=== PATIENT | male | born 1950 | race Caucasian/White ===

== ENCOUNTER 2018-06-24 17:28 | Outpatient (CLI) | payer MEDICARE ==
--- NOTE | 2018-06-25 09:21 | XRAY Report ---
Reason: KYPHOSIS DEFORMITY OF T SPINE,SOMATIC DYSFUNCTION Procedure Date: 06/24/2018 Accession Number: [id number] / [id number] Procedure: XR - Pelvis 1 View CPT Code: FULL RESULT: EXAM: PELVIS RADIOGRAPHY EXAM DATE: 06/24/2018 05:51 PM. CLINICAL HISTORY: Kyphosis deformity of t spine, somatic dysfunction. COMPARISON: None. TECHNIQUE: 1 view. FINDINGS: Bones: There is the suggestion of a mild scoliosis of the partially visualized lumbar spine. No fracture or bone lesion. Joints: The visualized hip joints demonstrate mild to moderate joint space narrowing. The pubis symphysis, and sacroiliac joints are preserved. No subluxation. Soft Tissues: Normal. No soft tissue swelling. IMPRESSION: Mild degenerative joint disease of the hips. RADIA
--- NOTE | 2018-06-25 09:42 | XRAY Report ---
Reason: KYPHOSIS DEFORMITY OF T SPICE, SOMATIC DYSFUNCTION Procedure Date: 06/24/2018 Accession Number: [id number] / [id number] Procedure: XR - Lumbar Spine 2 View CPT Code: FULL RESULT: EXAM: LUMBOSACRAL SPINE RADIOGRAPHY EXAM DATE: 06/24/2018 05:51 PM. CLINICAL HISTORY: Kyphosis deformity of t spice, somatic dysfunction. COMPARISONS: None. TECHNIQUE: 2 views. FINDINGS: Alignment: Mild thoracolumbar S-shaped scoliosis without listhesis. Bones: Five cet-uwz-toyjmui lumbar vertebral bodies are present. No fractures or bone lesions. Disks: Moderate degenerative disk disease is most pronounced at L4-L5 and L5-S1. Facets: Mild to moderate facet arthropathy at L4 and L5. Sacroiliac Joints: Unremarkable. Soft Tissues: Normal. The visualized bowel gas pattern is normal. IMPRESSION: Degenerative changes as described. RADIA
--- NOTE | 2018-06-25 09:42 | XRAY Report ---
Reason: KYPHOSIS DEFORMITY, SOMATIC DYSFUNCTION Procedure Date: 06/24/2018 Accession Number: [id number] / [id number] Procedure: XR - Thoracic Spine 2 View CPT Code: FULL RESULT: EXAM: THORACIC SPINE RADIOGRAPHY EXAM DATE: 06/24/2018 06:16 PM. CLINICAL HISTORY: Kyphosis deformity, somatic dysfunction. COMPARISON: None. TECHNIQUE: 2 views. FINDINGS: Alignment: There is a mild degenerative thoracic kyphosis without visualization of single level vertebral body loss of height. There is a mild thoracolumbar S-shaped scoliosis. No listhesis. Bones: No fractures or bone lesions. Disks: Normal. Disk heights are generally maintained. Soft Tissues: Normal. The visualized lungs and cardiomediastinal silhouette are normal. IMPRESSION: Mild degenerative kyphosis without kailyn compression fracture. RADIA
== END 2018-06-24 17:29 | disposition home or self-care (01) ==
LOC: DI 17:28
PROVIDERS: ATTEND Family Medicine
DX: M40.204 Unspecified kyphosis, thoracic region (principal); M99.03 Segmental and somatic dysfunction of lumbar region; M51.37 Other intervertebral disc degeneration, lumbosacral region; M16.0 Bilateral primary osteoarthritis of hip
CPT/HCPCS: 72070; 72100; 72170

== ENCOUNTER 2018-07-27 13:27 | Outpatient (CLI) | payer MEDICARE ==
--- NOTE | 2018-07-27 18:24 | MRI Report ---
Reason: PAIN IN LEFT LOWER LEG Procedure Date: 07/27/2018 Accession Number: [id number] / [id number] Procedure: MRI - Lumbar Spine W/O CPT Code: FULL RESULT: EXAM: MRI LUMBAR SPINE WITHOUT CONTRAST EXAM DATE: 07/27/2018 02:29 PM. CLINICAL HISTORY: Pain in left lower leg. COMPARISON: Radiographs 06/24/2018. TECHNIQUE: Multiplanar, multisequence T1-weighted and fluid-sensitive sequences of the lumbar spine from T10 to S1 without contrast. Other: None. FINDINGS: Spinal Canal: The conus terminates at T12-L1. The conus medullaris and cauda equina are unremarkable. Alignment: Mild S-shaped lumbar curvature with convex left component in the upper lumbar spine and convex right component in the lower lumbar spine. No spondylolisthesis. Bone Marrow: Five ukl-eop-ygvvahf lumbar vertebral bodies are present. Mildly heterogeneous T1 isointense signal throughout the osseous structures without focal fluid sensitive hyperintense lesion, suggestive of reconversion. Mild diskogenic edema at L4-L5, asymmetric to the left. Disk Levels/Facets: Disk desiccation throughout. Mild to moderate disk height loss at L4-L5. T12-L1: Minimal disk bulge. No stenosis. L1-L2: Minimal disk bulge. No stenosis. L2-L3: Minimal disk bulge. No stenosis. L3-L4: Small bilobed disk bulge, asymmetric to the right with superimposed small central protrusion. Mild facet and ligamentum flavum hypertrophy. Mild central canal stenosis. 0.6 cm cystic foci present in the anterior aspect bilateral neural foramen. These may be due to prominent vessels versus benign nerve root sheath cysts. These minimally displace the exiting L3 nerve roots. No gross neural foramen stenosis. L4-L5: Small broad-based disk/osteophyte complex extending into the neural foramen, left greater than right. Moderate facet and ligamentum flavum hypertrophy, left greater than right. Mild central canal stenosis. Disk and left facet contact and may impinge the traversing left L5 nerve root. Mild to moderate right and moderate to severe left neural foramen stenosis. L5-S1: Small broad-based disk bulge with central and right paracentral disk protrusion and focal high intensity zone. Facet hypertrophy. Disk protrusion may contact the traversing right S1 nerve root. Mild bilateral neural foramen stenosis. Musculature: Mild fatty atrophy in the posterior paraspinous musculature. No focal muscle edema. Subcentimeter synovial cyst at the posterior inferior aspects of the bilateral L4 facet joints and right L5-S1 facet joint. Other: The partially visualized retroperitoneum is unremarkable. Degenerative changes partially visualized at the sacroiliac joints. Cystic foci in the bilateral kidneys measuring up to 3.9 cm on the right. These are incompletely evaluated on the current exam but statistically likely represent simple cysts. IMPRESSION: 1. Mild to moderate degenerative disk and facet changes. 2. Disk/osteophyte complex, central disk protrusion, and facet hypertrophy at L3-L4 result in mild central canal stenosis. 3. Cystic foci in the anterior superior aspects of the bilateral L3-L4 neural foramen may be due to prominent vessels versus benign nerve root sheath cysts. These contribute to subtle mass effect on the exiting L3 nerve roots. 4. Disk/osteophyte complex and facet hypertrophy at L4-L5 result in mild central canal stenosis. Disk and left facet contact and may impinge the traversing left L5 nerve root. 5. Disk bulge at L5-S1 with central and right paracentral disk protrusion and annular tear. This may contact the traversing right S1 nerve root. 6. Varying degrees of neural foramen stenosis, moderate to severe at L4-L5 on the left. Comment: The following findings are so common in adults without low back pain that while we report their presence, they must be interpreted with caution and in the context of the clinical situation. (Reference Angelitak et al, Spine 2001) Prevalence of findings in patients without low back pain: Disk degeneration (any evidence): 92% Disk desiccation/T2 signal loss: 83% Disk height loss: 56% Disk bulge: 64% Disk protrusion: 32% Annular tear/high intensity zone: 38% RADIA
== END 2018-07-27 13:28 | disposition home or self-care (01) ==
LOC: DI 13:27
PROVIDERS: ATTEND Internal Medicine
DX: M51.16 Intervertebral disc disorders with radiculopathy, lumbar region (principal); M48.061 Spinal stenosis, lumbar region without neurogenic claudication; M25.78 Osteophyte, vertebrae
CPT/HCPCS: 72148

== ENCOUNTER 2018-08-20 15:45 | Emergency (ER) | payer MEDICARE ==
--- NOTE | 2018-08-20 17:57 | Ultrasound Report ---
Reason: LLE swelling, pain Procedure Date: 08/20/2018 Accession Number: [id number] / [id number] Procedure: US - Duplex Ext Veins Left CPT Code: FULL RESULT: EXAM: LEFT LOWER EXTREMITY VENOUS ULTRASOUND EXAM DATE: 08/20/2018 04:57 PM. CLINICAL HISTORY: LLE swelling, pain. COMPARISON: None. TECHNIQUE: Real-time sonographic vascular imaging was performed by the automotive painter through the lower extremity utilizing both color-flow and Doppler spectral analysis. Multiple ocean import representative static images were saved for review. FINDINGS: Common Femoral Vein (CFV): Normal. CFV-GSV Junction: Normal. Profunda Femoral Vein (PFV): Normal. Femoral Vein (FV) Prox: Normal. Femoral Vein (FV) Mid: Normal. Femoral Vein (FV) Dist: Normal. Popliteal Vein: Normal. Posterior Tibial Veins: Normal. Peroneal Veins: Normal. Contralateral Side CFV: Normal. Other: None. IMPRESSION: No evidence for deep venous thrombosis in the visualized left lower extremity. RADIA
[2018-08-20 18:53] VITALS: BP 133/73
--- NOTE | 2018-08-20 19:33 | ED Physician Documentation ---
History of Present Illness - Stated complaint Stated Complaint: POSS DVT - Chief complaint Chief Complaint: General - History obtained from History obtained from: Patient - History of Present Illness Timing: Other (months) Pain level max: 5 Pain level now: 0 Improved by: rest Worsened by: heavy exertion - Additonal information Additional information: 68-year-old male presents to the emergency department complaining of several months duration of left lower extremity pain, especially the buttock and the calf. This is especially present when he undergoes heavy exertion for a few minutes. Resolves quickly with rest. He saw a territory sales consultant today who noted that he had platelets in the 800s, sent here for evaluation. Patient currently is asymptomatic. No swelling in the leg. Review of Systems Ten Systems: 10 systems reviewed and negative Constitutional: denies: Fever, Chills Throat: denies: Sore throat Cardiac: denies: Chest pain / pressure Respiratory: denies: Cough GI: denies: Abdominal Pain, Nausea, Vomiting, Diarrhea Skin: denies: Rash Musculoskeletal: denies: Neck pain, Back pain Neurologic: denies: Focal weakness, Numbness, Headache PD PAST MEDICAL HISTORY - Past Medical History Past Medical History: Yes GI: GERD - Past Surgical History Past Surgical History: No - Allergies Allergies/Adverse Reactions: Allergies Allergy/AdvReac Type Severity Reaction Status Date / Time No Known Drug Allergies Allergy Verified 08/20/18 16:04 - Social History Does the pt smoke?: No Smoking Status: Never smoker PD ED PE NORMAL - Vitals Vital signs reviewed: Yes - General General: Alert and oriented X 3 - HEENT HEENT: Moist mucous membranes - Neck Neck: Supple, no meningeal sign - Cardiac Cardiac: RRR - Respiratory Respiratory: No respiratory distress, Clear bilaterally - Abdomen Abdomen: Soft, Non tender, Non distended - Back Back: No spinal TTP - Derm Derm: Warm and dry - Extremities Extremities: No edema, No calf tenderness / cord - Neuro Neuro: Alert and oriented X 3, No motor deficit, No sensory deficit - Psych Psych: Normal mood, Normal affect Results - Vitals Vitals: Vital Signs - 24 hr 08/20/18 08/20/18 16:02 18:52 Temperature 36.5 C 36.4 C L Heart Rate 76 76 Respiratory 18 16 Rate Blood Pressure 139/85 H 133/73 H O2 Saturation 100 97 Oxygen O2 Source Room air - Rads (name of study) duplex US LLE Radiology: Prelim report reviewed, EMP read contemporaneously, See rad report (no DVT) PD MEDICAL DECISION MAKING - ED course Complexity details: reviewed results, re-evaluated patient, considered differential, d/w patient ED course: 68-year-old male with thrombocytosis found on routine outpatient lab draw, platelets are in the 800s. We will have him follow-up with his doctor for this. No evidence of DVT. His symptoms as described in the emergency department are actually more consistent with claudication. He would likely benefit from contrast angiography specifically of his aortoiliac area. We will have him follow-up with his doctor for this. We will also likely benefit from a vascular surgery referral. Patient counseled regarding signs and symptoms for which I believe and urgent re-evaluation would be necessary. Patient with good understanding of and agreement to plan and is comfortable going home at this time This document was made in part using voice recognition software. While efforts are made to proofread this document, sound alike and grammatical errors may occur. Departure - Departure Disposition: 01 Home, Self Care Clinical Impression: Claudication of left lower extremity Condition: Good Instructions: ED PVD Follow-Up: Lenny Deleon MD [Primary Care Provider] - Within 1 week Comments: You have symptoms consistent with claudication tonight. This is likely related to peripheral artery disease. As you are having pain in your buttock with walking and heavy exertion, this may represent aortoiliac disease. You should have contrast arteriography to evaluate this further. you would likely benefit from seeing a vascular surgeon for this as well. These referrals can come from your primary care provider. Discharge Date/Time: 08/20/18 19:46
== END 2018-08-20 19:46 | disposition home or self-care (01) ==
LOC: ED 15:45
DX: I73.9 Peripheral vascular disease, unspecified (principal); M53.3 Sacrococcygeal disorders, not elsewhere classified
CPT/HCPCS: 99283

== ENCOUNTER 2018-08-24 11:33 | Outpatient (CLI) | payer MEDICARE ==
[2018-08-24 16:49] LABS: BASOPHILS # (AUTO) 0.1 10^3/uL (0.0-0.1); BASOPHILS % (AUTO) 0.9 %; EOSINOPHILS # (AUTO) 0.1 10^3/uL (0.0-0.7); EOSINOPHILS % (AUTO) 1.1 %; HGB - HEMOGLOBIN 17.7 g/dL (14.0-18.0); LYMPHOCYTES % (AUTO) 9.1 %; MEAN CORPUSCULAR HGB CONC 32.3 g/dL (32.0-36.0); MEAN CORPUSCULAR VOLUME 86.8 fL (80.0-94.0); MEAN PLATELET VOLUME 7.1 fL (7.4-11.4); MONOCYTES # (AUTO) 0.9 10^3/uL (0.0-1.0); MONOCYTES % (AUTO) 8.1 %; NEUTROPHILS # (AUTO) 8.7 10^3/uL (1.5-6.6); NEUTROPHILS % (AUTO) 80.8 %; RED BLOOD COUNT 6.33 10^6/uL (4.70-6.10); RED CELL DISTRIBUTION WIDTH 14.6 % (12.0-15.0); WHITE BLOOD COUNT 10.7 x10^3/uL (4.8-10.8)
[2018-08-24 17:45] LABS: ALBUMIN 4.5 g/dL (3.2-5.5); ALBUMIN/GLOBULIN RATIO 1.7 (1.0-2.2); BILIRUBIN,TOTAL 1.3 mg/dL (0.2-1.0); CALCIUM 10.2 mg/dL (8.5-10.3); CREATININE 1.3 mg/dL (0.6-1.2); MAGNESIUM 2.1 mg/dL (1.7-2.8); TOTAL PROTEIN 7.2 g/dL (6.7-8.2)
[2018-08-24 18:16] LABS: PLATELET MORPHOLOGY 1+ GIANT PLATELETS (NORMAL); PLT - PLATELET COUNT 952 10^3/uL (130-450)
== END 2018-08-24 11:34 | disposition home or self-care (01) ==
LOC: LAB.F 11:33
PROVIDERS: ATTEND Internal Medicine
DX: D47.3 Essential (hemorrhagic) thrombocythemia (principal)
CPT/HCPCS: 36415; 80053; 83735; 85025

== ENCOUNTER 2018-08-26 15:33 | Outpatient (CLI) | payer MEDICARE ==
--- NOTE | 2018-08-27 16:35 | Ultrasound Report ---
Reason: PVD, LUMBAR DISC DISORDER W/MYELOPATHY Procedure Date: 08/26/2018 Accession Number: [id number] / [id number] Procedure: US - Duplex Lwr Ext Arterial Bilat CPT Code: FULL RESULT: EXAM: Bilateral Lower Extremity Arterial Doppler Ultrasound EXAM DATE: 08/26/2018 05:23 PM. CLINICAL HISTORY: PVD, lumbar disk disorder with myelopathy. Left leg pain while walking. COMPARISON: None. TECHNIQUE: Real-time sonographic vascular imaging was performed by the back tender cylinder, utilizing color-flow, Doppler flow, and spectral analysis. Multiple retail representative static images were saved for review. FINDINGS: Please take the information from the worksheet Right Lower Extremity: FINANCIAL ANALYST INTERN: PSV 99 cm/sec, triphasic waveform. PSFA: PSV 78 cm/sec, biphasic waveform. MSFA: PSV 89 cm/sec, biphasic waveform. DSFA: PSV 76 cm/sec, biphasic waveform. PFA: PSV 56 cm/sec, biphasic waveform. POP: PSV 52 cm/sec, biphasic waveform. SHANNAN: PSV 52 cm/sec, biphasic waveform. PROJECT MGR: PSV 58 cm/sec, biphasic waveform. MIKAYLA: PSV 58 cm/sec, biphasic waveform. DPA: PSV 62 cm/sec, biphasic waveform. Left Lower Extremity: FINANCIAL ANALYST INTERN: PSV 111 cm/sec, triphasic waveform. PSFA: PSV 52 cm/sec, biphasic waveform. MSFA: PSV 23 cm/sec, biphasic waveform. DSFA: Occluded. PFA: PSV 61 cm/sec, triphasic waveform. POP: PSV 17 cm/sec, monophasic waveform. SHANNAN: PSV 15 cm/sec, monophasic waveform. PROJECT MGR: PSV 8 cm/sec, monophasic waveform. MIKAYLA: PSV 10 cm/sec, monophasic waveform. DPA: Partially occluded. IMPRESSION: 1. No flow-limiting stenosis right lower extremity arterial system. Flow is biphasic throughout except for the common femoral artery where it is triphasic. 2. Occluded distal left femoral artery with reconstitution at the level of the popliteal artery. Partially occluded left dorsalis pedis artery. Flow is a combination of triphasic, biphasic, and monophasic waveforms. RADIA
== END 2018-08-26 15:34 | disposition home or self-care (01) ==
LOC: DI 15:33
PROVIDERS: ATTEND Neurological Surgery
DX: I77.1 Stricture of artery (principal); I73.9 Peripheral vascular disease, unspecified; M51.06 Intervertebral disc disorders with myelopathy, lumbar region
CPT/HCPCS: 93925

== ENCOUNTER 2018-09-02 12:55 | Outpatient (CLI) | payer MEDICARE ==
[2018-09-02 18:12] LABS: BASOPHILS # (AUTO) 0.1 10^3/uL (0.0-0.1); EOSINOPHILS # (AUTO) 0.1 10^3/uL (0.0-0.7); EOSINOPHILS % (AUTO) 1.5 %; LYMPHOCYTES # (AUTO) 1.3 10^3/uL (1.5-3.5); LYMPHOCYTES % (AUTO) 12.9 %; MEAN CORPUSCULAR HEMOGLOBIN 28.3 pg (27.0-31.0); MEAN CORPUSCULAR HGB CONC 32.1 g/dL (32.0-36.0); MEAN CORPUSCULAR VOLUME 88.2 fL (80.0-94.0); MEAN PLATELET VOLUME 7.2 fL (7.4-11.4); MONOCYTES # (AUTO) 0.7 10^3/uL (0.0-1.0); MONOCYTES % (AUTO) 7.1 %; NEUTROPHILS # (AUTO) 7.7 10^3/uL (1.5-6.6); NEUTROPHILS % (AUTO) 77.5 %; RED BLOOD COUNT 5.66 10^6/uL (4.70-6.10)
[2018-09-02 18:54] LABS: PLT - PLATELET COUNT 939 10^3/uL (130-450)
== END 2018-09-02 12:56 | disposition home or self-care (01) ==
LOC: LAB.F 12:55
PROVIDERS: ATTEND Internal Medicine Hematology & Oncology
DX: D47.3 Essential (hemorrhagic) thrombocythemia (principal)
CPT/HCPCS: 36415; 85025

== ENCOUNTER 2018-09-09 08:00 | Outpatient (CLI) | payer MEDICARE ==
[2018-09-09 17:53] LABS: BASOPHILS % (AUTO) 0.5 %; EOSINOPHILS # (AUTO) 0.1 10^3/uL (0.0-0.7); EOSINOPHILS % (AUTO) 1.2 %; HGB - HEMOGLOBIN 15.6 g/dL (14.0-18.0); LYMPHOCYTES # (AUTO) 1.3 10^3/uL (1.5-3.5); LYMPHOCYTES % (AUTO) 17.8 %; MEAN CORPUSCULAR HGB CONC 31.8 g/dL (32.0-36.0); MEAN CORPUSCULAR VOLUME 87.9 fL (80.0-94.0); MEAN PLATELET VOLUME 6.9 fL (7.4-11.4); MONOCYTES # (AUTO) 0.5 10^3/uL (0.0-1.0); MONOCYTES % (AUTO) 7.3 %; NEUTROPHILS # (AUTO) 5.1 10^3/uL (1.5-6.6); NEUTROPHILS % (AUTO) 73.2 %; PLT - PLATELET COUNT 778 10^3/uL (130-450); RED BLOOD COUNT 5.59 10^6/uL (4.70-6.10); RED CELL DISTRIBUTION WIDTH 15.2 % (12.0-15.0)
== END 2018-09-09 23:59 | disposition home or self-care (01) ==
LOC: LAB.F 08:00
PROVIDERS: ATTEND Internal Medicine Hematology & Oncology
DX: D47.3 Essential (hemorrhagic) thrombocythemia (principal)
CPT/HCPCS: 36415; 85025

== ENCOUNTER 2018-09-14 07:11 | Outpatient (CLI) | payer MEDICARE ==
--- NOTE | 2018-09-14 09:25 | Ultrasound Report ---
Reason: PERIPHERAL ARTERY DISEASE Procedure Date: 09/14/2018 Accession Number: [id number] / [id number] Procedure: US - Duplex Aorta Complete CPT Code: FULL RESULT: EXAM: AORTIC DOPPLER ULTRASOUND EXAM DATE: 09/14/2018 07:23 AM. CLINICAL HISTORY: Peripheral artery disease. COMPARISON: None. TECHNIQUE: Real-time sonographic imaging of retroperitoneal vascular structures, including color-flow, Doppler flow and spectral analysis was performed by the quantitative analyst marketing. Multiple field service representative static images were saved for review. FINDINGS: Aorta: The abdominal aorta was adequately visualized. No evidence for abdominal aortic aneurysm. Aorta: Proximal: Sagittal AP: 2.3 cm. Mid: Transverse: 2.1 x 2.0 cm. Distal: Transverse: 1.7 x 1.8 cm. Caliber WNL: Yes. Plaque visualized: Yes. Iliacs: Right Iliac: Transverse: 1.0 x 1.1 cm. Left Iliac: Transverse: 1.0 x 1.0 cm. Doppler: Proximal Aorta PSV: 62.0 cm/sec. Mid Aorta PSV: 72.0 cm/sec. Distal Aorta PSV: 78.0 cm/sec. Proximal RCIA PSV: 120.0 cm/sec. Proximal LCIA PSV: 103.1 cm/sec. Iliac Vessels: The visualized proximal common iliac arteries are normal in caliber. Other: None. IMPRESSION: No abdominal aortic aneurysm. RADIA
== END 2018-09-14 07:12 | disposition home or self-care (01) ==
LOC: DI 07:11
PROVIDERS: ATTEND Internal Medicine
DX: I73.9 Peripheral vascular disease, unspecified (principal)
CPT/HCPCS: 93978

== ENCOUNTER 2018-09-15 08:00 | Outpatient (CLI) | payer MEDICARE ==
[2018-09-15 18:31] LABS: BASOPHILS % (AUTO) 0.9 %; EOSINOPHILS # (AUTO) 0.1 10^3/uL (0.0-0.7); EOSINOPHILS % (AUTO) 1.2 %; HGB - HEMOGLOBIN 16.1 g/dL (14.0-18.0); LYMPHOCYTES # (AUTO) 1.1 10^3/uL (1.5-3.5); LYMPHOCYTES % (AUTO) 21.2 %; MEAN CORPUSCULAR HEMOGLOBIN 28.3 pg (27.0-31.0); MEAN CORPUSCULAR HGB CONC 32.1 g/dL (32.0-36.0); MEAN CORPUSCULAR VOLUME 88.4 fL (80.0-94.0); MONOCYTES # (AUTO) 0.5 10^3/uL (0.0-1.0); MONOCYTES % (AUTO) 10.1 %; NEUTROPHILS # (AUTO) 3.4 10^3/uL (1.5-6.6); NEUTROPHILS % (AUTO) 66.6 %; PLT - PLATELET COUNT 542 10^3/uL (130-450); RED BLOOD COUNT 5.69 10^6/uL (4.70-6.10)
== END 2018-09-15 23:59 | disposition home or self-care (01) ==
LOC: LAB.F 08:00
PROVIDERS: ATTEND Internal Medicine Hematology & Oncology
DX: D47.3 Essential (hemorrhagic) thrombocythemia (principal)
CPT/HCPCS: 36415; 85025

== ENCOUNTER 2018-09-30 13:09 | Outpatient (CLI) | payer MEDICARE ==
[2018-09-30 17:24] LABS: BASOPHILS % (AUTO) 0.8 %; EOSINOPHILS % (AUTO) 0.8 %; LYMPHOCYTES # (AUTO) 0.9 10^3/uL (1.5-3.5); LYMPHOCYTES % (AUTO) 20.9 %; MEAN CORPUSCULAR HEMOGLOBIN 29.8 pg (27.0-31.0); MEAN CORPUSCULAR HGB CONC 32.7 g/dL (32.0-36.0); MEAN CORPUSCULAR VOLUME 91.2 fL (80.0-94.0); MONOCYTES # (AUTO) 0.5 10^3/uL (0.0-1.0); MONOCYTES % (AUTO) 11.3 %; NEUTROPHILS # (AUTO) 2.9 10^3/uL (1.5-6.6); NEUTROPHILS % (AUTO) 66.2 %; PLT - PLATELET COUNT 542 10^3/uL (130-450); RED BLOOD COUNT 5.04 10^6/uL (4.70-6.10); RED CELL DISTRIBUTION WIDTH 15.3 % (12.0-15.0); WHITE BLOOD COUNT 4.5 x10^3/uL (4.8-10.8)
== END 2018-09-30 13:10 | disposition home or self-care (01) ==
LOC: LAB.F 13:09
PROVIDERS: ATTEND Internal Medicine Hematology & Oncology
DX: D47.3 Essential (hemorrhagic) thrombocythemia (principal)
CPT/HCPCS: 36415; 85025

== ENCOUNTER 2018-10-07 10:09 | Outpatient (CLI) | payer MEDICARE ==
[2018-10-07 18:33] LABS: BASOPHILS % (AUTO) 0.9 %; EOSINOPHILS % (AUTO) 0.9 %; LYMPHOCYTES # (AUTO) 0.9 10^3/uL (1.5-3.5); LYMPHOCYTES % (AUTO) 27.6 %; MEAN CORPUSCULAR HEMOGLOBIN 29.9 pg (27.0-31.0); MEAN CORPUSCULAR HGB CONC 32.7 g/dL (32.0-36.0); MEAN CORPUSCULAR VOLUME 91.5 fL (80.0-94.0); MEAN PLATELET VOLUME 7.2 fL (7.4-11.4); MONOCYTES # (AUTO) 0.3 10^3/uL (0.0-1.0); MONOCYTES % (AUTO) 10.5 %; NEUTROPHILS % (AUTO) 60.1 %; PLT - PLATELET COUNT 436 10^3/uL (130-450); RED BLOOD COUNT 5.03 10^6/uL (4.70-6.10); RED CELL DISTRIBUTION WIDTH 19.8 % (12.0-15.0); WHITE BLOOD COUNT 3.2 x10^3/uL (4.8-10.8)
[2018-10-07 18:48] LABS: PLATELET ESTIMATE, MANUAL NORMAL (130-450,000) (NORMAL); PLATELET MORPHOLOGY NORMAL APPEARANCE (NORMAL); RBC MORPHOLOGY (MULTIPLE) 2+ ANISOCYTOSIS (NORMAL)
== END 2018-10-07 10:10 | disposition home or self-care (01) ==
LOC: LAB.F 10:09
PROVIDERS: ATTEND Internal Medicine Hematology & Oncology
DX: D47.3 Essential (hemorrhagic) thrombocythemia (principal)
CPT/HCPCS: 36415; 85025

== ENCOUNTER 2018-10-14 11:20 | Outpatient (CLI) | payer MEDICARE ==
[2018-10-14 20:28] LABS: BASOPHILS % (AUTO) 0.9 %; EOSINOPHILS % (AUTO) 0.9 %; HGB - HEMOGLOBIN 14.4 g/dL (14.0-18.0); LYMPHOCYTES # (AUTO) 1.2 10^3/uL (1.5-3.5); LYMPHOCYTES % (AUTO) 37.2 %; MEAN CORPUSCULAR HEMOGLOBIN 30.6 pg (27.0-31.0); MEAN CORPUSCULAR HGB CONC 33.6 g/dL (32.0-36.0); MEAN PLATELET VOLUME 7.9 fL (7.4-11.4); MONOCYTES # (AUTO) 0.3 10^3/uL (0.0-1.0); NEUTROPHILS # (AUTO) 1.8 10^3/uL (1.5-6.6); PLT - PLATELET COUNT 156 10^3/uL (130-450); RED BLOOD COUNT 4.72 10^6/uL (4.70-6.10); RED CELL DISTRIBUTION WIDTH 24.5 % (12.0-15.0); WHITE BLOOD COUNT 3.3 x10^3/uL (4.8-10.8)
[2018-10-14 21:39] LABS: PLATELET ESTIMATE, MANUAL NORMAL (130-450,000) (NORMAL); PLATELET MORPHOLOGY NORMAL APPEARANCE (NORMAL)
== END 2018-10-14 11:21 | disposition home or self-care (01) ==
LOC: LAB.F 11:20
PROVIDERS: ATTEND Internal Medicine Hematology & Oncology
DX: D47.3 Essential (hemorrhagic) thrombocythemia (principal)
CPT/HCPCS: 36415; 85025

== ENCOUNTER 2018-10-21 13:39 | Outpatient (CLI) | payer MEDICARE ==
[2018-10-21 18:59] LABS: BASOPHILS % (AUTO) 0.4 %; EOSINOPHILS % (AUTO) 1.2 %; HGB - HEMOGLOBIN 13.5 g/dL (14.0-18.0); LYMPHOCYTES # (AUTO) 1.6 10^3/uL (1.5-3.5); LYMPHOCYTES % (AUTO) 40.7 %; MEAN CORPUSCULAR HEMOGLOBIN 30.4 pg (27.0-31.0); MEAN CORPUSCULAR HGB CONC 33.3 g/dL (32.0-36.0); MEAN CORPUSCULAR VOLUME 91.5 fL (80.0-94.0); MEAN PLATELET VOLUME 7.8 fL (7.4-11.4); MONOCYTES # (AUTO) 0.3 10^3/uL (0.0-1.0); MONOCYTES % (AUTO) 7.1 %; NEUTROPHILS % (AUTO) 50.6 %; PLT - PLATELET COUNT 105 10^3/uL (130-450); RED BLOOD COUNT 4.45 10^6/uL (4.70-6.10); RED CELL DISTRIBUTION WIDTH 24.5 % (12.0-15.0); WHITE BLOOD COUNT 3.9 x10^3/uL (4.8-10.8)
[2018-10-21 20:52] LABS: PLATELET ESTIMATE, MANUAL DECREASED (<130,000) (NORMAL); PLATELET MORPHOLOGY NORMAL APPEARANCE (NORMAL); RBC MORPHOLOGY (MULTIPLE) 2+ ANISOCYTOSIS (NORMAL)
== END 2018-10-21 13:40 | disposition home or self-care (01) ==
LOC: LAB.F 13:39
PROVIDERS: ATTEND Internal Medicine Hematology & Oncology
DX: D47.3 Essential (hemorrhagic) thrombocythemia (principal)
CPT/HCPCS: 36415; 85025; 85610

== ENCOUNTER 2018-10-28 13:28 | Outpatient (CLI) | payer MEDICARE ==
[2018-10-28 18:10] LABS: BASOPHILS % (AUTO) 0.2 %; HGB - HEMOGLOBIN 12.9 g/dL (14.0-18.0); LYMPHOCYTES # (AUTO) 1.3 10^3/uL (1.5-3.5); LYMPHOCYTES % (AUTO) 37.7 %; MEAN CORPUSCULAR HGB CONC 33.5 g/dL (32.0-36.0); MEAN CORPUSCULAR VOLUME 92.4 fL (80.0-94.0); MEAN PLATELET VOLUME 7.2 fL (7.4-11.4); MONOCYTES # (AUTO) 0.3 10^3/uL (0.0-1.0); MONOCYTES % (AUTO) 9.7 %; NEUTROPHILS # (AUTO) 1.7 10^3/uL (1.5-6.6); NEUTROPHILS % (AUTO) 51.4 %; PLT - PLATELET COUNT 249 10^3/uL (130-450); RED BLOOD COUNT 4.18 10^6/uL (4.70-6.10); RED CELL DISTRIBUTION WIDTH 25.6 % (12.0-15.0); WHITE BLOOD COUNT 3.4 x10^3/uL (4.8-10.8)
[2018-10-28 18:30] LABS: PLATELET ESTIMATE, MANUAL NORMAL (130-450,000) (NORMAL); PLATELET MORPHOLOGY NORMAL APPEARANCE (NORMAL); RBC MORPHOLOGY (MULTIPLE) 1+ ANISOCYTOSIS (NORMAL)
== END 2018-10-28 13:29 | disposition home or self-care (01) ==
LOC: LAB.F 13:28
PROVIDERS: ATTEND Internal Medicine Hematology & Oncology
DX: D47.3 Essential (hemorrhagic) thrombocythemia (principal)
CPT/HCPCS: 36415; 85025

== ENCOUNTER 2018-11-11 14:18 | Outpatient (CLI) | payer MEDICARE ==
[2018-11-11 17:40] LABS: BASOPHILS # (AUTO) 0.1 10^3/uL (0.0-0.1); BASOPHILS % (AUTO) 1.1 %; EOSINOPHILS % (AUTO) 0.3 %; LYMPHOCYTES # (AUTO) 1.4 10^3/uL (1.5-3.5); LYMPHOCYTES % (AUTO) 23.2 %; MEAN CORPUSCULAR HEMOGLOBIN 32.5 pg (27.0-31.0); MEAN CORPUSCULAR HGB CONC 34.5 g/dL (32.0-36.0); MEAN CORPUSCULAR VOLUME 94.2 fL (80.0-94.0); MEAN PLATELET VOLUME 6.6 fL (7.4-11.4); MONOCYTES # (AUTO) 0.5 10^3/uL (0.0-1.0); NEUTROPHILS # (AUTO) 4.2 10^3/uL (1.5-6.6); NEUTROPHILS % (AUTO) 67.4 %; PLT - PLATELET COUNT 736 10^3/uL (130-450); RED BLOOD COUNT 3.99 10^6/uL (4.70-6.10); WHITE BLOOD COUNT 6.2 x10^3/uL (4.8-10.8)
[2018-11-11 18:03] LABS: PLATELET ESTIMATE, MANUAL INCREASED (>450,000) (NORMAL); PLATELET MORPHOLOGY NORMAL APPEARANCE (NORMAL)
== END 2018-11-11 14:19 | disposition home or self-care (01) ==
LOC: LAB.F 14:18
PROVIDERS: ATTEND Internal Medicine Hematology & Oncology
DX: D47.3 Essential (hemorrhagic) thrombocythemia (principal)
CPT/HCPCS: 36415; 85025

== ENCOUNTER 2018-12-02 08:01 | Outpatient (CLI) | payer MEDICARE ==
[2018-12-02 13:37] LABS: BASOPHILS # (AUTO) 0.1 10^3/uL (0.0-0.1); BASOPHILS % (AUTO) 1.6 %; EOSINOPHILS % (AUTO) 0.8 %; HGB - HEMOGLOBIN 11.6 g/dL (14.0-18.0); LYMPHOCYTES % (AUTO) 33.9 %; MEAN CORPUSCULAR HEMOGLOBIN 36.9 pg (27.0-31.0); MEAN CORPUSCULAR HGB CONC 34.3 g/dL (32.0-36.0); MEAN CORPUSCULAR VOLUME 107.5 fL (80.0-94.0); MEAN PLATELET VOLUME 7.3 fL (7.4-11.4); MONOCYTES # (AUTO) 0.2 10^3/uL (0.0-1.0); MONOCYTES % (AUTO) 7.8 %; NEUTROPHILS # (AUTO) 1.7 10^3/uL (1.5-6.6); NEUTROPHILS % (AUTO) 55.9 %; PLT - PLATELET COUNT 155 10^3/uL (130-450); RED BLOOD COUNT 3.14 10^6/uL (4.70-6.10); RED CELL DISTRIBUTION WIDTH 36.4 % (12.0-15.0); WHITE BLOOD COUNT 3.1 x10^3/uL (4.8-10.8)
[2018-12-02 14:01] LABS: RBC MORPHOLOGY (MULTIPLE) 4+ ANISOCYTOSIS (NORMAL)
== END 2018-12-02 08:02 | disposition home or self-care (01) ==
LOC: LAB.F 08:01
PROVIDERS: ATTEND Internal Medicine Hematology & Oncology
DX: D47.3 Essential (hemorrhagic) thrombocythemia (principal)
CPT/HCPCS: 36415; 85025

== ENCOUNTER 2018-12-09 08:00 | Outpatient (CLI) | payer MEDICARE ==
[2018-12-09 17:57] LABS: BASOPHILS % (AUTO) 0.9 %; EOSINOPHILS % (AUTO) 1.9 %; HGB - HEMOGLOBIN 10.4 g/dL (14.0-18.0); LYMPHOCYTES % (AUTO) 32.9 %; MEAN CORPUSCULAR HEMOGLOBIN 39.6 pg (27.0-31.0); MEAN CORPUSCULAR HGB CONC 34.9 g/dL (32.0-36.0); MEAN CORPUSCULAR VOLUME 113.6 fL (80.0-94.0); MEAN PLATELET VOLUME 7.4 fL (7.4-11.4); MONOCYTES % (AUTO) 8.2 %; NEUTROPHILS % (AUTO) 56.1 %; PLT - PLATELET COUNT 148 10^3/uL (130-450); RED BLOOD COUNT 2.62 10^6/uL (4.70-6.10); RED CELL DISTRIBUTION WIDTH 37.1 % (12.0-15.0)
[2018-12-09 18:00] LABS: ABNORMAL LYMPHS % (MANUAL) 0 %; BAND NEUTROPHILS % (MANUAL) 0 %
[2018-12-09 18:30] LABS: BASOPHILS % (MANUAL) 1 %; EOSINOPHILS # (MANUAL) 0.1 10^3/uL (0-0.7); LYMPHOCYTES # (MANUAL) 0.8 10^3/uL (1.5-3.5); LYMPHOCYTES % (MANUAL) 28 %; MONOCYTES # (MANUAL) 0.2 10^3/uL (0.0-1.0); NEUTROPHILS # (MANUAL) 1.8 10^3/uL (1.5-6.6); NEUTROPHILS % (MANUAL) 60 %
[2018-12-09 18:32] LABS: DIFFERENTIAL COMMENT MANUAL DIFFERENTIAL; PLATELET ESTIMATE, MANUAL NORMAL (130-450,000) (NORMAL); PLATELET MORPHOLOGY NORMAL APPEARANCE (NORMAL)
== END 2018-12-09 23:59 | disposition home or self-care (01) ==
LOC: LAB.F 08:00
PROVIDERS: ATTEND Internal Medicine Hematology & Oncology
DX: D47.3 Essential (hemorrhagic) thrombocythemia (principal)
CPT/HCPCS: 36415; 85025

== ENCOUNTER 2018-12-21 11:36 | Outpatient (CLI) | payer MEDICARE ==
[2018-12-21 17:56] LABS: BASOPHILS % (AUTO) 0.3 %; EOSINOPHILS % (AUTO) 0.4 %; HGB - HEMOGLOBIN 10.6 g/dL (14.0-18.0); LYMPHOCYTES # (AUTO) 1.2 10^3/uL (1.5-3.5); LYMPHOCYTES % (AUTO) 33.5 %; MEAN CORPUSCULAR HEMOGLOBIN 43.1 pg (27.0-31.0); MEAN CORPUSCULAR HGB CONC 34.9 g/dL (32.0-36.0); MEAN CORPUSCULAR VOLUME 123.5 fL (80.0-94.0); MONOCYTES # (AUTO) 0.4 10^3/uL (0.0-1.0); MONOCYTES % (AUTO) 10.8 %; NEUTROPHILS # (AUTO) 1.9 10^3/uL (1.5-6.6); PLT - PLATELET COUNT 340 10^3/uL (130-450); RED BLOOD COUNT 2.47 10^6/uL (4.70-6.10); RED CELL DISTRIBUTION WIDTH 33.3 % (12.0-15.0); WHITE BLOOD COUNT 3.5 x10^3/uL (4.8-10.8)
[2018-12-21 18:24] LABS: PLATELET ESTIMATE, MANUAL NORMAL (130-450,000) (NORMAL); PLATELET MORPHOLOGY NORMAL APPEARANCE (NORMAL)
== END 2018-12-21 11:37 | disposition home or self-care (01) ==
LOC: LAB.F 11:36
PROVIDERS: ATTEND Nurse Practitioner
DX: D47.3 Essential (hemorrhagic) thrombocythemia (principal)
CPT/HCPCS: 36415; 85025

== ENCOUNTER 2018-12-30 09:59 | Outpatient (CLI) | payer MEDICARE ==
[2018-12-30 17:58] LABS: BASOPHILS % (AUTO) 0.4 %; EOSINOPHILS % (AUTO) 0.4 %; HGB - HEMOGLOBIN 10.8 g/dL (14.0-18.0); LYMPHOCYTES # (AUTO) 1.1 10^3/uL (1.5-3.5); LYMPHOCYTES % (AUTO) 23.6 %; MEAN CORPUSCULAR HEMOGLOBIN 44.6 pg (27.0-31.0); MEAN CORPUSCULAR HGB CONC 33.5 g/dL (32.0-36.0); MEAN CORPUSCULAR VOLUME 133.1 fL (80.0-94.0); MEAN PLATELET VOLUME 9.4 fL (7.4-11.4); MONOCYTES # (AUTO) 0.5 10^3/uL (0.0-1.0); MONOCYTES % (AUTO) 11.3 %; NEUTROPHILS % (AUTO) 64.1 %; PLT - PLATELET COUNT 338 10^3/uL (130-450); RED BLOOD COUNT 2.42 10^6/uL (4.70-6.10); RED CELL DISTRIBUTION WIDTH 24.1 % (12.0-15.0); WHITE BLOOD COUNT 4.6 x10^3/uL (4.8-10.8)
[2018-12-30 20:15] LABS: PLATELET MORPHOLOGY NORMAL APPEARANCE (NORMAL)
[2018-12-30 20:16] LABS: PLATELET ESTIMATE, MANUAL NORMAL (130-450,000) (NORMAL)
== END 2018-12-30 10:00 | disposition home or self-care (01) ==
LOC: LAB.F 09:59
PROVIDERS: ATTEND Internal Medicine Hematology & Oncology
DX: D47.3 Essential (hemorrhagic) thrombocythemia (principal)
CPT/HCPCS: 36415; 85025

== ENCOUNTER 2019-01-13 10:11 | Outpatient (CLI) | payer MEDICARE ==
[2019-01-13 17:52] LABS: BASOPHILS % (AUTO) 0.3 %; EOSINOPHILS # (AUTO) 0.1 10^3/uL (0.0-0.7); EOSINOPHILS % (AUTO) 1.5 %; HGB - HEMOGLOBIN 11.5 g/dL (14.0-18.0); LYMPHOCYTES # (AUTO) 0.9 10^3/uL (1.5-3.5); LYMPHOCYTES % (AUTO) 26.2 %; MEAN CORPUSCULAR HEMOGLOBIN 48.9 pg (27.0-31.0); MEAN CORPUSCULAR HGB CONC 34.3 g/dL (32.0-36.0); MEAN CORPUSCULAR VOLUME 142.6 fL (80.0-94.0); MEAN PLATELET VOLUME 9.6 fL (7.4-11.4); MONOCYTES # (AUTO) 0.3 10^3/uL (0.0-1.0); MONOCYTES % (AUTO) 8.5 %; NEUTROPHILS # (AUTO) 2.2 10^3/uL (1.5-6.6); NEUTROPHILS % (AUTO) 63.2 %; PLT - PLATELET COUNT 202 10^3/uL (130-450); RED BLOOD COUNT 2.35 10^6/uL (4.70-6.10); RED CELL DISTRIBUTION WIDTH 13.7 % (12.0-15.0); WHITE BLOOD COUNT 3.4 x10^3/uL (4.8-10.8)
[2019-01-13 19:03] LABS: PLATELET ESTIMATE, MANUAL NORMAL (130-450,000) (NORMAL); PLATELET MORPHOLOGY NORMAL APPEARANCE (NORMAL)
== END 2019-01-13 10:12 | disposition home or self-care (01) ==
LOC: LAB.S 10:11
PROVIDERS: ATTEND Internal Medicine Hematology & Oncology
DX: D47.3 Essential (hemorrhagic) thrombocythemia (principal)
CPT/HCPCS: 36415; 85025

== ENCOUNTER 2019-01-29 13:01 | Outpatient (CLI) | payer MEDICARE ==
[2019-01-29 17:46] LABS: BASOPHILS % (AUTO) 0.3 %; HGB - HEMOGLOBIN 12.2 g/dL (14.0-18.0); LYMPHOCYTES # (AUTO) 1.1 10^3/uL (1.5-3.5); LYMPHOCYTES % (AUTO) 33.7 %; MEAN CORPUSCULAR HEMOGLOBIN 49.6 pg (27.0-31.0); MEAN CORPUSCULAR HGB CONC 35.7 g/dL (32.0-36.0); MEAN PLATELET VOLUME 9.9 fL (7.4-11.4); MONOCYTES # (AUTO) 0.4 10^3/uL (0.0-1.0); MONOCYTES % (AUTO) 11.1 %; NEUTROPHILS # (AUTO) 1.7 10^3/uL (1.5-6.6); NEUTROPHILS % (AUTO) 53.6 %; PLT - PLATELET COUNT 199 10^3/uL (130-450); RED BLOOD COUNT 2.46 10^6/uL (4.70-6.10); RED CELL DISTRIBUTION WIDTH 11.9 % (12.0-15.0); WHITE BLOOD COUNT 3.2 x10^3/uL (4.8-10.8)
[2019-01-29 20:11] LABS: PLATELET ESTIMATE, MANUAL NORMAL (130-450,000) (NORMAL); PLATELET MORPHOLOGY NORMAL APPEARANCE (NORMAL)
== END 2019-01-29 13:02 | disposition home or self-care (01) ==
LOC: LAB.S 13:01
PROVIDERS: ATTEND Internal Medicine Hematology & Oncology
DX: D47.3 Essential (hemorrhagic) thrombocythemia (principal)
CPT/HCPCS: 36415; 85025

== ENCOUNTER 2019-02-08 19:51 | Outpatient (CLI) | payer MEDICARE ==
--- NOTE | 2019-02-10 09:41 | Ultrasound Report ---
Reason: CLAUDICATION OF LEFT LOWER EXTREMITY Procedure Date: 02/08/2019 Accession Number: [id number] / [id number] Procedure: US - Duplex Lwr Ext Arterial Bilat CPT Code: FULL RESULT: EXAM: Bilateral Lower Extremity Arterial Doppler Ultrasound EXAM DATE: 02/08/2019 08:52 PM. CLINICAL HISTORY: Claudication of left lower extremity. COMPARISON: 08/26/2018. TECHNIQUE: Real-time sonographic vascular imaging was performed by the basket operator, utilizing color-flow, Doppler flow, and spectral analysis. Multiple retail customer service representative static images were saved for review. FINDINGS: Bilateral lower extremity arterial duplex examination is performed. The bilateral common femoral artery, profunda femoris artery, SFA, popliteal artery, anterior tibial, posterior tibial, peroneal and dorsalis pedis arteries are interrogated with peak systolic velocities as below. Waveforms in the right and left lower extremity remained triphasic throughout with preserved brisk systolic upstrokes. All vessels are patent by color Doppler. No critical stenosis is identified by vallejo scale Doppler. A distal SFA stent is seen on the left, patent. Right Leg: CUTTING MACHINE TENDER HELPER: PSV 101 cm/sec. PSFA: PSV 56 cm/sec. MSFA: PSV 73 cm/sec. DSFA: PSV 77 cm/sec. PFA: PSV 64 cm/sec. POP: PSV 66 cm/sec. SHANNAN: PSV 53 cm/sec. PNEUDRAULIC SYSTEMS MECHANIC: PSV 53 cm/sec. PER: PSV 28 cm/sec. DPA: PSV 53 cm/sec. Left Leg: CUTTING MACHINE TENDER HELPER: PSV 90 cm/sec. PSFA: PSV 59 cm/sec. MSFA: PSV 70 cm/sec. DSFA pre-stent: PSV 56 cm/sec. DSFA mid stent: PSV 81 cm/sec. DSFA post/distal stent: PSV 98 cm/sec. PFA: PSV 58 cm/sec. POP: PSV 79 cm/sec. SHANNAN: PSV 72 cm/sec. PNEUDRAULIC SYSTEMS MECHANIC: PSV 76 cm/sec. PER: PSV 29 cm/sec. DPA: PSV 45 cm/sec. IMPRESSION: Preserved brisk systolic upstrokes with triphasic waveforms to the bilateral ankles with triphasic waveforms in both dorsalis pedis arteries. Excellent arterial supply to both lower extremities by arterial ultrasound. RADIA
== END 2019-02-08 19:52 | disposition home or self-care (01) ==
LOC: DI 19:51
PROVIDERS: ATTEND Thoracic Surgery (Cardiothoracic Vascular Surgery)
DX: I73.9 Peripheral vascular disease, unspecified (principal)
CPT/HCPCS: 93925

== ENCOUNTER 2019-02-15 | Outpatient (CLI) | payer MEDICARE | END 2019-02-15 11:34 | disposition home or self-care (01) | DX: D47.3 Essential (hemorrhagic) thrombocythemia (principal) ==